=== PATIENT | female | born 1970 | race Caucasian/White ===

== ENCOUNTER 2017-09-13 16:06 | Outpatient (CLI) | payer BC | END 2017-09-13 16:07 | disposition home or self-care (01) | LOC: BICMAMMO 16:06 | PROVIDERS: ATTEND Student in an Organized Health Care Education/Training Program | DX: Z12.31 Encounter for screening mammogram for malignant neoplasm of breast (principal); Z80.3 Family history of malignant neoplasm of breast | CPT/HCPCS: 77063; 77067 ==

== ENCOUNTER 2017-09-20 13:33 | Outpatient (CLI) | payer BC | END 2017-09-20 13:34 | disposition home or self-care (01) | LOC: BICMAMMO 13:33 | PROVIDERS: ATTEND Student in an Organized Health Care Education/Training Program | DX: R92.2 Inconclusive mammogram (principal); Z80.3 Family history of malignant neoplasm of breast | CPT/HCPCS: G0279 ==

== ENCOUNTER 2018-06-07 07:41 | Outpatient (CLI) | payer BC ==
--- NOTE | 2018-06-07 08:44 | CT ---
CT CERVICAL SPINE WITHOUT CONTRAST: HISTORY: Headache. Pain down both shoulders. COMPARISON: None FINDINGS: No craniocervical dissociation. Appropriate alignment of the lateral masses of C1 and C2. Intact odon toid process Appropriate alignment of the facets. Soft tissue neck structures: No mass, lymphadenopathy or hematoma. No prevertebral soft tissue swelli ng. Upper mediastinum and lung apices: Unremarkable Central spinal canal: C2-C3: No high-grade central canal stenosis. Mild bilateral foraminal narrowing due to uncovertebral hypertrophy. C3-C4: No high-grade central canal stenosis. Mild bilateral forming due to uncal vertebral hypertroph y. C4-C5: No high-grade central canal stenosis. Moderate right and mild left foraminal narrowing due to uncovertebral hypertrophy. C5-C6: No significant central canal stenosis. Mild right foraminal narrowing due to uncovertebral hyp ertrophy. Left neural foramen is patent. C6-C7: No significant central canal stenosis or significant foraminal narrowing. C7-T1: No significant canal stenosis or foraminal narrowing. Vertebral bodies: Cervical spine vertebral body height is maintained. No fracture. Metallic shrapnel projecting over the posterior left upper thorax, incompletely evaluated. IMPRESSION: 1. Limited evaluation of the contents of the central spinal canal and neural foramina due to techniqu e. No significant central canal stenosis or high-grade neural foraminal narrowing. 2. No evidence of fracture. 3. Metallic shrapnel projecting over the posterior left upper thorax, incompletely evaluated. Transcribed Date/Time: 06/07/2018 8:55 AM
--- NOTE | 2018-06-07 08:52 | CT ---
CT BRAIN WITH AND WITHOUT CONTRAST: DATE: 06/07/2018. HISTORY: A 47-year-old female with headache. TECHNIQUE: Precontrast scan of brain IV injection iodinated contrast media: Isovue. Postcontrast scan of brain FINDINGS: The ventricles are normal in size and configuration. There is no midline shift or any other mass eff ect. There is no evidence of acute intracranial hemorrhage, large cortical infarct, or extraaxial fl uid collection. The banegas matter /white matter differentiation is maintained. There is no abnormal e nhancement or mass. The calvarium is intact. The tympanomastoid cavities, and the upper portions of the paranasal sinuses included in these images, are grossly clear. IMPRESSION: Normal. twila [] POS: MARII
[2018-06-07] MEDS ORDERED: Iopamidol 370 76% 100 ML VIAL ONE (15:04)
== END 2018-06-07 07:42 | disposition home or self-care (01) ==
LOC: CT 07:41
PROVIDERS: ATTEND Family Medicine
DX: R51 Headache (principal)
CPT/HCPCS: 70470; 72125

== ENCOUNTER 2021-08-15 09:39 | Outpatient (CLI) | payer OTHER | END 2021-08-15 09:40 | disposition home or self-care (01) | LOC: BICRAD 09:39 | PROVIDERS: ATTEND Internal Medicine | DX: Z02.71 Encounter for disability determination (principal); M41.9 Scoliosis, unspecified; M47.816 Spondylosis without myelopathy or radiculopathy, lumbar region; M47.814 Spondylosis without myelopathy or radiculopathy, thoracic region | CPT/HCPCS: 72100 ==